=== PATIENT | male | born 1970 | race African-American/Black ===

== ENCOUNTER 2019-03-11 20:31 | Emergency (ER) | payer OTHER ==
[~2019-03-11] VITALS: Ht 188 cm; Wt 130.2 kg
[2019-03-11 21:07] LABS: ABSOLUTE NEUTROPHILS 2.3 thou/uL (1.4-8.2); APTT 33.1 Seconds (24.5-32.8); BASOPHILS 1.2 % (0.0-2.0); EOSINOPHILS 2.8 % (0.0-3.0); HEMATOCRIT 40.8 % (42.0-52.0); HEMOGLOBIN 13.6 gm/dL (14.0-18.0); LYMPHOCYTES 53.5 % (24.0-44.0); MCH 31.2 pg (26.0-34.0); MCHC 33.3 g/dL (28.0-37.0); MCV 93.6 fL (80.0-100.0); MONOCYTES 5.8 % (1.0-8.0); PLATELET COUNT 205 thou/uL (150-400); POLYS 36.7 % (36.0-66.0); PROTIME 10.5 Seconds (9.3-11.4); RBC 4.36 mil/uL (4.50-6.00); RDW 13.9 % (10.5-14.5); WBC 6.3 thou/uL (4.0-11.0)
[2019-03-11 21:10] LABS: ANION GAP 9 mmol/L (7-16); BUN 11 mg/dL (7-18); CHLORIDE 105 mmol/L (98-107); CO2 25 mmol/L (21-32); CREATININE 1.6 mg/dL (0.7-1.3); GLUCOSE 106 mg/dL (74-106); POTASSIUM 3.8 mmol/L (3.5-5.1); SODIUM 139 mmol/L (136-145)
[2019-03-11 21:21] LABS: ALBUMIN 3.6 g/dL (3.4-5.0); MAGNESIUM 2.1 mg/dL (1.8-2.4); SGOT 21 U/L (15-37); SGPT 21 U/L (30-65); TOTAL BILIRUBIN 0.5 mg/dL (<0.1-1.0); TOTAL PROTEIN 7.2 g/dL (6.4-8.2); TROPONIN-I <0.06 ng/mL (<0.06)
[2019-03-11 21:26] LABS: BE(vivo) 1.2 mmol/L (-2 to +3); HCO3 24.8 mmol/L (22.0-26.0); PCO2 36.1 mmHg (35.0-45.0); PO2 38.6 mmHg (80.0-100.0); pH 7.455 (7.360-7.450); sO2 76.2 % (92.0-98.0)
[2019-03-11 23:07] LABS: URINE BILIRUBIN 1+ (Negative); URINE BLOOD NEGATIVE (Negative); URINE CLARITY SL CLOUDY; URINE COLOR YELLOW; URINE GLUCOSE-RANDOM* NEGATIVE (Negative); URINE KETONES NEGATIVE (Negative); URINE LEUKOCYTES-REFLEX NEGATIVE (Negative); URINE NITRITE-REFLEX NEGATIVE (Negative); URINE PROTEIN (DIPSTICK) 1+ (Negative); URINE SPECIFIC GRAVITY >= 1.030 (1.005-1.035)
[2019-03-11 23:15] LABS: AMP/METHAMP POSITIVE (Negative); BARBITURATES Negative (Negative); BENZODIAZEPINES Negative (Negative); COCAINE POSITIVE (Negative); METHADONE Negative (Negative); OPIATES Negative (Negative); PCP POSITIVE (Negative)
[2019-03-11 23:22] LABS: BACTERIA-REFLEX 1-9 Few /HPF (None Seen); CASTS None Seen /LPF (None Seen); MUCUS 4-6 Moderate strn/LPF (None Seen); SQUAMOUS 0-3 Few /LPF (0-3); URINE RBC 3-10 Few /HPF (0-2); URINE WBC-REFLEX 0-5 Rare /HPF (0-5)
[2019-03-11 23:23] LABS: CALCIUM OXALATE 4-10 Moderate /LPF (None Seen)
[2019-03-12 00:05] VITALS: BP 121/75
--- NOTE | 2019-03-12 18:09 | EKG ---
[address] [address] [place] [address] ELECTROCARDIOGRAM REPORT Name: VENESSA ROMO Room #: DEP Jeff#: [id number] Admission: 03/11/19 Attend Phys: Discharge: 03/12/19 Date of : 70 Report #: [id number] THIS REPORT FOR: //name// [facility] ED Test Date: 2019-03-11 Test Time: 20:32:56 Pat Name: VENESSA ROMO Department: Room: Gender: M Floor Refinisher: DEMI : 1970 Requested By: Shaheed Ji Order Number: [id number] MD: Hugo Nassar Measurements Intervals [place] Rate: 65 P: 60 ND: 166 QRS: -49 QRSD: 93 T: 78 QT: 371 QTc: 386 Interpretive Statements Sinus rhythm Left anterior fascicular block No previous ECG available for comparison Electronically Signed On 03-12-2019 18:08:59 CDT by Huog Nassar [email or web address] <ELECTRONICALLY SIGNED> By: Hugo Nassar MD, [facility] 03/12/19 1808 31 31 Hugo Nassar MD, FACC /EPI
== END 2019-03-12 00:06 | disposition home or self-care (01) ==
LOC: ER 20:31
PROVIDERS: Emergency Medicine
DX: R41.82 Altered mental status, unspecified (principal); F15.10 Other stimulant abuse, uncomplicated; F14.10 Cocaine abuse, uncomplicated; F16.10 Hallucinogen abuse, uncomplicated; F12.10 Cannabis abuse, uncomplicated; F17.210 Nicotine dependence, cigarettes, uncomplicated

== ENCOUNTER 2021-06-25 14:27 | Emergency (ER) | payer OTHER ==
[~2021-06-25] VITALS: Ht 188 cm; Wt 129.3 kg
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
[2021-06-25 15:42] LABS: ABSOLUTE NEUTROPHILS 8.8 thou/uL (1.4-8.2); BASOPHILS 0.5 % (0.0-2.0); EOSINOPHILS 0.1 % (0.0-3.0); HEMATOCRIT 40.2 % (42.0-52.0); HEMOGLOBIN 13.5 gm/dL (14.0-18.0); LYMPHOCYTES 9.3 % (24.0-44.0); MCH 31.7 pg (26.0-34.0); MCHC 33.6 g/dL (28.0-37.0); MCV 94.3 fL (80.0-100.0); MONOCYTES 4.3 % (1.0-8.0); PLATELET COUNT 231 thou/uL (150-400); POLYS 85.8 % (36.0-66.0); RBC 4.26 mil/uL (4.50-6.00); RDW 14.1 % (10.5-14.5); WBC 10.3 thou/uL (4.0-11.0)
[2021-06-25 15:47] LABS: CALCIUM 9.4 mg/dL (8.5-10.1); CREATININE 2.1 mg/dL (0.7-1.3); POTASSIUM 4.8 mmol/L (3.5-5.1)
[2021-06-25 18:05] VITALS: BP 119/64
--- NOTE | 2021-06-26 07:17 | EKG ---
[place] [address] [facility] [place] [address] ELECTROCARDIOGRAM REPORT Name: VENESSA ROMO [id number] Admission: 06/25/21 Attend Phys: Discharge: 06/25/21 Date of : 70 Report #: [id number] [facility] ED Test Date: 2021-06-25 Test Time: 14:45:23 Pat Name: VENESSA ROMO Department: Room: Gender: M Director Of Dietary: : 1970 Requested By: Cb Lowe Order Number: [id number] MD: Joel Juárez Measurements Intervals [place] Rate: 68 P: 56 [place]: 151 QRS: -52 QRSD: 95 T: 75 QT: 391 QTc: 416 Interpretive Statements Sinus rhythm Left anterior fascicular block ST elev, probable normal early repol pattern Baseline wander in lead(s) V2,V4,V5 Compared to ECG 03/11/2019 20:32:56 ST (T wave) deviation now present Electronically Signed On 06-26-2021 7:17:03 LEAN LEADER by Joel Juárez [email or web address] <ELECTRONICALLY SIGNED> By: Joel Juárez MD, FAC 06/26/21 0717 1445 1445 Joel Juárez MD, [facility] /EPI
== END 2021-06-25 18:06 | disposition home or self-care (01) ==
LOC: ER 14:27
PROVIDERS: Emergency Medicine
DX: R55 Syncope and collapse (principal); R41.0 Disorientation, unspecified; I10 Essential (primary) hypertension; F17.290 Nicotine dependence, other tobacco product, uncomplicated; Z85.07 Personal history of malignant neoplasm of pancreas